=== PATIENT | female | born 1980 | race Caucasian/White ===

== ENCOUNTER → 2019-03-20 08:41 | Outpatient (CLI) | payer MEDICAID ==
--- NOTE | 2019-03-20 09:52 | NUR ---
TIMEOUT PERFORMED AT 0938 USING NAME AND . PERFORMED BY DR. MONGE. NO DRUG ALLERGIES
== END | disposition home or self-care (01) ==
LOC: D.RAD 03-13 13:00 → D.MRI 03-16 09:00 → D.RAD 08:41
PROVIDERS: ATTEND Orthopaedic Surgery
DX: S49.91XA Unspecified injury of right shoulder and upper arm, initial encounter (principal)

== ENCOUNTER 2019-08-21 09:00 | Day surgery (SDC) | payer OTHER ==
[2019-08-18 10:55] LABS: HEMATOCRIT 44.1 % (36.0-48.0); HEMOGLOBIN 14.8 g/dL (12-16); MCH 30.2 pg (26.0-34.0); MCHC 33.6 g/dL (31.0-37.0); MEAN PLATELET VOLUME 9.7 fL (7.4-10.4); RBC 4.9 10x6/uL (4.00-5.40); RDW 13.2 % (11.5-14.5); WBC 5.2 10x3/uL (4.8-10.8)
[2019-08-18 13:22] LABS: HCG URINE NEGATIVE (NEGATIVE)
[~2019-08-21] VITALS: Ht 157.5 cm; Wt 69.4 kg
[~2019-08-21 09:00] MED LIST: ADVIL200 MG
[2019-08-21 09:11] VITALS: BP 141/78; Ht 157.5 cm; Wt 69.4 kg
--- NOTE | 2019-08-21 09:21 | NUR ---
PT RESPONDED POSITIVELY TO LIFETIME SUICIDE RISK QUESTION. CALLED FOR BEHAVIORAL HEALTH CONSULT
--- NOTE | 2019-08-21 09:33 | NUR ---
DR ROJAS NOTIFIED AND REVIEWED PT'S BEHAVIOR AND ASSESSMENT RESULTS. PT IS A LOW RISK. RESOURCES GIVEN AND SHE VERBALIZES UNDERSTANDING.
[2019-08-21] MEDS ORDERED: HYDROCODON-ACE1 EA10 PO (11:58)
--- NOTE | 2019-08-21 14:10 | NUR ---
DISCHARGE INSTRUCTIONS PROVIDED AND WHEELED OUT AT 1400
--- NOTE | 2019-08-28 09:56 | OP ---
PATIENT NAME: PATRICK HARKINS MEDICAL RECORD: [id number] :84 LOCATION:[facility] ADMISSION DATE: SURGEON: RODNEY ZUÑIGA MD DATE OF OPERATION: 08/21/2019 PREOPERATIVE DIAGNOSIS: SLAP lesion of the right shoulder. POSTOPERATIVE DIAGNOSIS: SLAP lesion of the right shoulder. PROCEDURE: Arthroscopic SLAP repair of the right shoulder. SURGEON: Rodney Zuñiga MD ANESTHESIA: General. INTRAOPERATIVE COMPLICATIONS: None. SUMMARY OF PATHOLOGIC FINDINGS: The patient had a clear SLAP lesion from anterior to posterior, requiring fixation. No other pathology was noted. There was not a decompression needed nor distal clavicle excision needed. The patient quite simply had a labral tear. This was fixed. The patient had an anterior paralabral cyst that was decompressed. OPERATIVE SUMMARY IN DETAIL: After obtaining the appropriate preoperative orthopedic surgery consent as well as another was brought to the operating room and placed on the operating table in supine position. After adequate general laryngeal mask airway was administered, the patient was placed in left lateral decubitus position. All pressure points were well padded to include down leg peroneal pad as well as axillary roll. The patient was held firmly to the operating table using vacuum pack suction system. Right upper extremity and shoulder were then prepped and draped in routine sterile fashion. The arm was held in the Arthrex traction boom at 30 degrees of forward flexion, 30 degrees of abduction, 10 pounds of traction laterally. At this point, the appropriate preoperative timeout was taken and agreed upon by all given the patient's unique identifiers. Arthroscopy was established in the glenohumeral joint for posterior portal. Anterior portal was established in the anterior safe interval. Diagnostic arthroscopy showed the patient to have an anterior labral tear. Further dissection showed a paralabral cyst. The paralabral cyst was decompressed using the resector and the anterior aspect of the glenoid was prepared for labral repair. At this point, a single labral repair stitch was all that was required to close the labral tear resulting in the patient's paralabral cyst. Articular surfaces were smooth. The biceps tendon did demonstrate normal anatomy. Having completed the labral repair, attention was turned to the subacromial space. While in the subacromial space, the patient had normal rotator cuff findings. No bursa and no excoriation of the coracoacromial ligament as well as normal AC joint findings. At this point, arthroscopic portals were closed in routine interrupted fashion using 4-0 Prolene. Sterile dressings were applied. The patient was awakened, taken to recovery in stable condition. All final needle and sponge counts were correct. TRANSINT:[id number] Voice Confirmation ID: [id number] DOCUMENT ID: [id number] OPERATIVE REPORT [id number] PATRICK HARKINS MD, RODNEY VU at 0956 CC: [id number] DICTATION DATE: 08/25/19 1054 PRODUCT SAFETY PROFESSIONAL: 08/25/192008 [facility] 08/21/19 [facility] [address] [place] [address]
== END 2019-08-21 14:00 | disposition home or self-care (01) ==
LOC: D.OPS 09:00 → D.PAN 11:00 → D.OPS 11:45 → D.PAN 11:45 → D.OPS 14:00 → D.PAN 17:10 → D.OPS 18:45 → D.PAN 18:45
PROVIDERS: Anesthesiology; ATTEND Orthopaedic Surgery
DX: S43.431A Superior glenoid labrum lesion of right shoulder, initial encounter (principal); M25.511 Pain in right shoulder; X58.XXXA Exposure to other specified factors, initial encounter

== ENCOUNTER → 2020-04-22 15:38 | Outpatient (CLI) | payer OTHER ==
[2019-08-21 09:11] VITALS: BMI 28.0
[~2020-04-22 15:38] MED LIST changes: +HYDROCODON-ACE1 EA10 PO
== END | disposition home or self-care (01) ==
LOC: D.RAD 15:38
PROVIDERS: ATTEND Pain Medicine Interventional Pain Medicine
DX: M25.551 Pain in right hip (principal)

== ENCOUNTER 2020-10-10 13:49 | Emergency (ER) | payer OTHER ==
[~2020-10-10] VITALS: Ht 157.5 cm; Wt 70.3 kg
[2020-10-10 14:13] VITALS: BP 121/79; Ht 157.5 cm; Wt 70.3 kg
[2020-10-10] MEDS ORDERED: KLONOPIN0.5 MG PO (14:18)
[2020-10-10 15:45] LABS: BASOPHILS 0.4 % (0-2); EOSINOPHILS 0.2 % (0-7); HEMATOCRIT 37.5 % (36.0-48.0); HEMOGLOBIN 12.5 g/dL (12-16); LYMPHOCYTE ABS# 2.07 10x3/uL (1.18-3.74); LYMPHOCYTES 39.1 % (15-50); MCHC 33.3 g/dL (31.0-37.0); MCV 89.9 fL (80.0-100.0); MEAN PLATELET VOLUME 9.8 fL (7.4-10.4); MONOCYTES 8.1 % (2-11); NEUTROPHIL ABS# 2.77 10x3/uL (1.56-6.13); NEUTROPHILS 52.2 % (40-80); RBC 4.17 10x6/uL (4.00-5.40); RDW 12.5 % (11.5-14.5); WBC 5.3 10x3/uL (4.8-10.8)
[2020-10-10 15:48] LABS: PLATELET COUNT 203 10x3/uL (130-400)
[2020-10-10 15:49] LABS: BILIRUBIN NEGATIVE (NEGATIVE); KETONE NEGATIVE (NEGATIVE); NITRITE NEGATIVE (NEGATIVE); UROBILINOGEN NORMAL mg/dL (< 2)
[2020-10-10 15:50] LABS: BACTERIA FEW HPF (NONE SEEN); SQUAMOUS EPITHELIAL 0-5 HPF (0-4); WHITE CELLS - URINE 1 HPF (0-4)
[2020-10-10 15:52] LABS: CALC OSMOLALITY 274 mosm/kg (275-300); CALCIUM 8.9 mg/dL (8.5-10.1); CARBON DIOXIDE 28.6 mmol/L (21.0-32.0); CHLORIDE - SERUM 104 mmol/L (98-107); CREATININE - SERUM 0.7 mg/dL (0.6-1.3); GLUCOSE 91 mg/dL (74-106); POTASSIUM - SERUM 3.7 mmol/L (3.5-5.1); SODIUM 138 mmol/L (136-145); UREA NITROGEN 10 mg/dL (7-18); eGFR NON AFRICAN AMERICAN > 90 mL/min (90-120)
[2020-10-10 15:56] LABS: HCG URINE NEGATIVE (NEGATIVE)
[2020-10-10 16:04] LABS: ALBUMIN 3.5 g/dL (3.4-5.0); ALKALINE PHOSPHATASE 49 U/L (30-120); ALT (SGPT) 24 U/L (10-68); BILIRUBIN - TOTAL 0.31 mg/dL (0.2-1.3); PROTEIN - SERUM 6.5 g/dL (6.4-8.2)
[2020-10-10] MEDS ORDERED: CYCLOBENZAPRINE10 MG PO (16:16)
== END 2020-10-10 17:14 | disposition home or self-care (01) ==
LOC: D.ER 13:49
PROVIDERS: Family Medicine
DX: R10.9 Unspecified abdominal pain (principal)